=== PATIENT | female | born 1945 ===

== ENCOUNTER 2020-07-25 16:33 | Emergency (ER) | payer OTHER ==
[~2020-07-25] VITALS: Ht 144.8 cm; Wt 76.2 kg
[~2020-07-25 16:33] MED LIST: AVALIDE 150-12.1 TA1 PO; GLUCOPHAGE XR500 MG PO
[2020-07-25] MEDS ORDERED: CYANOCOBAL1000 MCG/1 (17:12)
[2020-07-25] MEDS ORDERED: ATACAND32 MG PO (17:12)
[2020-07-25] MEDS ORDERED: ALLOPURINOL100 MG PO (17:13)
[2020-07-25] MEDS ORDERED: ATACAND HCT 321 EACH PO (17:13)
[2020-07-25] MEDS ORDERED: NABUMETONE750 MG PO (17:13)
[2020-07-25] MEDS ORDERED: CLONAZEPAM0.5 MG PO (17:13)
[2020-07-25] MEDS ORDERED: KOMBIGLYZE XR1 EACH PO (17:14)
[2020-07-25] MEDS ORDERED: ATORVASTATIN CA20 MG PO (17:16)
[2020-07-25] MEDS ORDERED: DICLOFENAC SODI75 MG PO (18:04)
[2020-07-25] MEDS ORDERED: NORFLEX100MG PO (18:05)
== END 2020-07-25 18:40 | disposition home or self-care (01) ==
LOC: ER 16:33
DX: M54.5 Low back pain (principal)

== ENCOUNTER 2024-03-08 09:13 | Outpatient (CLI) | payer OTHER ==
[~2024-03-08 09:13] MED LIST changes: +ALLOPURINOL100 MG PO; +ATACAND HCT 321 EACH PO; +ATACAND32 MG PO; +ATORVASTATIN CA20 MG PO; +CLONAZEPAM0.5 MG PO; +CYANOCOBAL1000 MCG/1; +DICLOFENAC SODI75 MG PO; +KOMBIGLYZE XR1 EACH PO; +NABUMETONE750 MG PO; +NORFLEX100MG PO
== END 2024-03-08 09:14 | disposition home or self-care (01) ==
LOC: SONOGRAMA 09:13
DX: E11.22 Type 2 diabetes mellitus with diabetic chronic kidney disease (principal); E11.42 Type 2 diabetes mellitus with diabetic polyneuropathy; I10 Essential (primary) hypertension; E78.00 Pure hypercholesterolemia, unspecified; E66.3 Overweight